=== PATIENT | male | born 1965 | race Caucasian/White ===

== ENCOUNTER → 2019-01-28 | Outpatient (CLI) | payer OTHER ==
--- NOTE | 2019-01-28 10:14 | RADIOLOGY REPORT (SQ) ---
EXAM DESCRIPTION: LUMBAR SPINE 2 VIEWS COMPLETED DATE/TIME: 01/28/2019 9:44 am REASON FOR STUDY: UNSP FRACTURE OF T11-T12 VERTEBRA, INIT FOR CLOS FX S22.089A UNSP FRACTURE OF T11 -T12 VERTEBRA, INIT FOR CLOS FX COMPARISON: None. NUMBER OF VIEWS: Two views. TECHNIQUE: AP and lateral radiographic images acquired of the lumbar spine. LIMITATIONS: None. FINDINGS: MINERALIZATION: Normal. SEGMENTATION: There are 5 lumbar-type vertebral bodies. There is no transitional anatomy at the lumb osacral junction ALIGNMENT: Normal. VERTEBRAE: There is a compression deformity of the superior endplate of the T12 vertebral body with a pproximately 25 to 50% loss of the vertebral body height. There is no retropulsion. The lumbar vert ebral body heights are preserved. DISCS: The intervertebral disc space heights are preserved. POSTERIOR ELEMENTS: Intact. There is no pars interarticularis defect HARDWARE: None in the spine. PARASPINAL SOFT TISSUES: Normal. PELVIS: No abnormality. OTHER: No other finding. IMPRESSION: Compression deformity of the superior endplate of the T12 vertebral body with approximat brock 25 to 50% loss of the vertebral body height. If the patient is symptomatic and there are no othe r radiographic examinations available for comparison then correlation with MRI is recommended to eval uate the acuity of the fracture. TECHNICAL DOCUMENTATION: JOB ID: [id number] [employer]- All Rights Reserved Reading location - IP/workstation name: [email or web address]
== END ==
LOC: OD 09:23
PROVIDERS: ATTEND Physician Assistant
DX: S22.089A Unspecified fracture of T11-T12 vertebra, initial encounter for closed fracture (principal); X58.XXXA Exposure to other specified factors, initial encounter; Y93.9 Activity, unspecified; Y92.9 Unspecified place or not applicable
CPT/HCPCS: 72100

== ENCOUNTER → 2019-03-22 | Outpatient (CLI) | payer OTHER ==
--- NOTE | 2019-03-22 18:32 | RADIOLOGY REPORT (SQ) ---
EXAM DESCRIPTION: T SPINE AP/LAT COMPLETED DATE/TIME: 03/22/2019 4:52 pm REASON FOR STUDY: UNSP FRACTURE OF T11-T12 VERTEBRA, INIT FOR CLOS FX S22.089A UNSP FRACTURE OF T11 -T12 VERTEBRA, INIT FOR CLOS FX COMPARISON: X-ray of the lumbar spine dated 01/28/2019. NUMBER OF VIEWS: Two views. TECHNIQUE: AP and lateral radiographic images acquired of the thoracic spine. LIMITATIONS: None. FINDINGS: MINERALIZATION: Normal. ALIGNMENT: Normal. No scoliosis. VERTEBRAE: Anterior wedge compression fracture of the T12 vertebra. The other thoracic vertebrae are intact. DISCS: No significant loss of height or significant narrowing. No large osteophytes. HARDWARE: None in the spine. MEDIASTINUM AND SOFT TISSUES: Normal heart size and aortic contour. No soft tissue abnormality. VISUALIZED LUNG OLEA: Clear. OTHER: No other significant finding. IMPRESSION: WEDGE COMPRESSION FRACTURE OF T12. TECHNICAL DOCUMENTATION: JOB ID: [id number] [employer]- All Rights Reserved Reading location - IP/workstation name: [email or web address]
== END ==
LOC: OD 16:24
PROVIDERS: ATTEND Neurological Surgery
DX: S22.089A Unspecified fracture of T11-T12 vertebra, initial encounter for closed fracture (principal); X58.XXXA Exposure to other specified factors, initial encounter
CPT/HCPCS: 72070